=== PATIENT | female | born 1985 | race Caucasian/White ===

== ENCOUNTER → 2023-10-11 | Outpatient (REF) | payer OTHER ==
[2023-10-11 15:45] LABS: CREATININE, URINE 60.6 MG/DL; MAU/CREAT RATIO 113.8 MCG/MG (0.0-30.0)
== END ==
LOC: M LAB REF 15:03
PROVIDERS: ATTEND Nurse Practitioner Family
DX: E10.65 Type 1 diabetes mellitus with hyperglycemia (principal)

== ENCOUNTER 2024-01-15 14:31 | Inpatient (IN) | payer OTHER ==
[~2024-01-15] VITALS: Ht 180.3 cm; Wt 89.1 kg
[2024-01-15] MEDS: NS 500 ML IV ONE (15:15)
[2024-01-15] MEDS: PANTOPRAZOLE 40MG VIAL IV ONE (15:16)
[2024-01-15] MEDS: MORPHINE 4 MG/ML 1ML VIAL IV ONE ×2 (15:16→18:25)
[2024-01-15] MEDS: ONDANSETRON 4MG 2ML VIAL IV ONE ×2 (15:16→17:11)
[2024-01-15 15:25] LABS: BASO % 0.1 % (0.0-1.0); HEMATOCRIT 34.5 % (36.0-47.0); HEMOGLOBIN 12.6 g/dl (12.0-15.5); LYMPH # 0.8 10^3/uL (1.5-5.0); LYMPH % 9.2 % (24.0-44.0); MEAN CORPUSCULAR HEMOGLOBIN 32.2 pg (27.0-33.0); MEAN CORPUSCULAR HGB CONC 36.5 g/dl (32.0-36.5); MEAN CORPUSCULAR VOLUME 88.2 fl (80.0-96.0); MONO # 0.6 10^3/uL (0.0-0.8); MONO % 6.8 % (2.0-8.0); NEUTROPHILS # 6.8 10^3/uL (1.5-8.5); NEUTROPHILS % 83.4 % (36.0-66.0); PLATELET COUNT, AUTOMATED 202 10^3/uL (150-450); RED BLOOD COUNT 3.91 10^6/uL (4.00-5.40); WHITE BLOOD COUNT 8.1 10^3/uL (4.0-10.0)
[2024-01-15 15:44] LABS: LIPASE 33 U/L (12-53)
[2024-01-15 15:46] LABS: ALBUMIN 3.5 G/DL (3.2-5.2); ALKALINE PHOSPHATASE 95 U/L (35-104); ALT/SGPT 21 U/L (7.0-40); AST/SGOT 15 U/L (<34); BILIRUBIN,DIRECT 0.2 MG/DL (<0.4); BILIRUBIN,TOTAL 0.5 MG/DL (0.3-1.2); BLOOD UREA NITROGEN 18 MG/DL (9-23); CALCIUM LEVEL 8.3 MG/DL (8.5-10.1); CARBON DIOXIDE LEVEL 21 MMOL/L (20-31); CHLORIDE LEVEL 104 MMOL/L (98-107); CREATININE FOR GFR 0.91 MG/DL (0.55-1.30); GLOMERULAR FILTRATION RATE > 60.0 (>60); GLUCOSE, FASTING 258 MG/DL (60-100); POTASSIUM SERUM 4.2 MMOL/L (3.5-5.1); SODIUM LEVEL 135 MMOL/L (136-145); TOTAL PROTEIN 6.6 G/DL (5.7-8.2)
[2024-01-15 15:50] LABS: RSV AMPLIFICATION NEGATIVE (NEGATIVE)
[2024-01-15 16:23] LABS: HCG, SERUM QUALITATIVE NEGATIVE (NEGATIVE)
[2024-01-15] MEDS: GASTROGRAFIN SOLUTION 30ML PO SCH (17:07)
[2024-01-15] MEDS ORDERED: ISOVUE-370 76% 100ML VIAL As Ordered ONE (17:37)
[2024-01-15] MEDS ORDERED: DEXTROSE 50% 50ML SYRINGE IV PRN (19:05)
[2024-01-15] MEDS ORDERED: NALOXONE INJ 0.4MG/1ML VIAL IV PRN (19:05)
[2024-01-15] MEDS ORDERED: GLUCAGON INJ 1MG VIAL SC PRN (19:05)
[2024-01-15] MEDS ORDERED: ACETAMINOPHEN 325 MG TAB PO PRN (19:05)
[2024-01-15] MEDS ORDERED: GLUCOSE 4 GM CHEW PO PRN (19:05)
[2024-01-15] MEDS: HALOPERIDOL LACTATE 5MG/ML VIAL IM ONE (19:20)
[2024-01-15] MEDS ORDERED: ALBUTEROL 90 MCG/ACT 8GM HFA INHALER INH PRN (19:20)
[2024-01-15 19:35] LABS: VENOUS BASE EXCESS -8.3 (-2.0-2.0); VENOUS HCO3 17.1 MMOL/L (23.0-27.0); VENOUS O2 SATURATION 70.8 % (60.0-80.0); VENOUS PARTIAL PRESSURE CO2 35.1 mmHg (38.0-50.0); VENOUS PARTIAL PRESSURE O2 39.5 mmHg (30.0-50.0); VENOUS PH 7.306 UNITS (7.330-7.430); VENOUS STANDARD HCO3 17.3 MMOL/L; VENOUS TOTAL CO2 18.2 MMOL/L (24.0-28.0)
[2024-01-15] MEDS: LR 1,000 ML IV SCH (19:36)
[2024-01-15 19:57] LABS: INR 1.02; PARTIAL THROMBOPLASTIN TIME 30.4 SECONDS (24.8-34.2); PROTHROMBIN TIME 13.7 SECONDS (12.5-14.5)
[2024-01-15 20:04] LABS: C REACTIVE PROTEIN QUANTITATIV 2.5 MG/DL (<1.0); MAGNESIUM LEVEL 1.8 MG/DL (1.8-2.4)
[2024-01-15 20:05] LABS: HEMOGLOBIN A1c 9.4 % (4.0-6.0)
[2024-01-15 20:09] LABS: FERRITIN 115.7 NG/ML (7.3-270.7)
[2024-01-15 20:14] LABS: PROCALCITONIN 0.12 ng/ml
[2024-01-15 20:30] VITALS: BP 127/71; TEMP 99.1; O2SAT 94
[2024-01-15 20:45] LABS: AMPHETAMINES LEVEL URINE NEGATIVE (NEGATIVE); BARBITURATES URINE NEGATIVE (NEGATIVE); BENZODIAZEPINES URINE NEGATIVE (NEGATIVE); COCAINE METABOLITE URINE NEGATIVE (NEGATIVE); METHADONE URINE NEGATIVE (NEGATIVE); PHENCYCLIDINE URINE NEGATIVE (NEGATIVE)
[2024-01-15 20:46] LABS: CANNABINOIDS URINE POSITIVE (NEGATIVE); OPIATES URINE POSITIVE (NEGATIVE)
[2024-01-15] MEDS: MUPIROCIN 2% OINT 22 GM TUBE TOP SCH (21:00)
[2024-01-15] MEDS ORDERED: INSULIN LISPRO (NovoLOG) PER UNIT SC SCH (21:00)
[2024-01-15 21:46] VITALS: O2SAT 92
[2024-01-15] MEDS ORDERED: SERT50TA29 PO (21:52)
[2024-01-15] MEDS ORDERED: INSUDET SC ×2 (21:52→22:13)
[2024-01-15] MEDS ORDERED: NOVOINJ3 SC (21:52)
[2024-01-15] MEDS ORDERED: MULT-90 PO (21:55)
[2024-01-15] MEDS ORDERED: HOME MED LIST COMPLETE! XX SCH ×2 (22:00→22:15)
[2024-01-15] MEDS: REMDESIVIR 200 MG in NS 250 ML IV ONE (22:15)
[2024-01-15] MEDS: METOCLOPRAMIDE INJ 10MG/2ML VIAL IV SCH (22:16)
[2024-01-15] MEDS: INSULIN LISPRO (NovoLOG) PER UNIT SC ONE (22:16)
[2024-01-15] MEDS: LEVEMIR (INSULIN DETEMIR) 1 UNITS/0.01ML SC ONE (22:16)
[2024-01-15 23:53] VITALS: BP 103/50; TEMP 97.4; O2SAT 100
[2024-01-16] MEDS: MORPHINE 2 MG/ML 1ML VIAL IV PRN ×2 (00:15→07:22)
[2024-01-16] MEDS: INSULIN LISPRO (NovoLOG) PER UNIT SC SCH ×2 (00:15→12:00)
[2024-01-16 02:10] LABS: VENOUS BASE EXCESS -4.1 (-2.0-2.0); VENOUS HCO3 20.7 MMOL/L (23.0-27.0); VENOUS O2 SATURATION 95.4 % (60.0-80.0); VENOUS PARTIAL PRESSURE CO2 36.8 mmHg (38.0-50.0); VENOUS PARTIAL PRESSURE O2 83.7 mmHg (30.0-50.0); VENOUS PH 7.368 UNITS (7.330-7.430); VENOUS TOTAL CO2 21.8 MMOL/L (24.0-28.0)
[2024-01-16 02:49] LABS: ACETONE/KETONE 1.16 MMOL/L (0.02-0.27); BLOOD UREA NITROGEN 18 MG/DL (9-23); CALCIUM LEVEL 7.8 MG/DL (8.5-10.1); CARBON DIOXIDE LEVEL 24 MMOL/L (20-31); CHLORIDE LEVEL 106 MMOL/L (98-107); CREATININE FOR GFR 1.03 MG/DL (0.55-1.30); GLOMERULAR FILTRATION RATE > 60.0 (>60); GLUCOSE, FASTING 208 MG/DL (60-100); SODIUM LEVEL 137 MMOL/L (136-145)
[2024-01-16 04:00] VITALS: BP 112/62; TEMP 97.7; O2SAT 100
[2024-01-16 06:07] LABS: BASO % 0.2 % (0.0-1.0); EOS % 0.2 % (0.0-3.0); HEMATOCRIT 32.6 % (36.0-47.0); HEMOGLOBIN 11.3 g/dl (12.0-15.5); LYMPH # 1.3 10^3/uL (1.5-5.0); LYMPH % 24.4 % (24.0-44.0); MEAN CORPUSCULAR HGB CONC 34.7 g/dl (32.0-36.5); MEAN CORPUSCULAR VOLUME 89.6 fl (80.0-96.0); MONO # 0.6 10^3/uL (0.0-0.8); MONO % 10.8 % (2.0-8.0); NEUTROPHILS # 3.5 10^3/uL (1.5-8.5); NEUTROPHILS % 64.2 % (36.0-66.0); PLATELET COUNT, AUTOMATED 199 10^3/uL (150-450); RED BLOOD COUNT 3.64 10^6/uL (4.00-5.40); WHITE BLOOD COUNT 5.4 10^3/uL (4.0-10.0)
[2024-01-16 06:30] LABS: BLOOD UREA NITROGEN 17 MG/DL (9-23); CARBON DIOXIDE LEVEL 23 MMOL/L (20-31); CHLORIDE LEVEL 106 MMOL/L (98-107); CREATININE FOR GFR 0.92 MG/DL (0.55-1.30); GLOMERULAR FILTRATION RATE > 60.0 (>60); GLUCOSE, FASTING 95 MG/DL (60-100); MAGNESIUM LEVEL 1.9 MG/DL (1.8-2.4); POTASSIUM SERUM 3.8 MMOL/L (3.5-5.1); SODIUM LEVEL 137 MMOL/L (136-145)
[2024-01-16] MEDS ORDERED: INSULIN LISPRO (NovoLOG) PER UNIT SC SCH (07:30)
[2024-01-16 08:00] VITALS: BP 141/66; TEMP 98.1; O2SAT 94
[2024-01-16] MEDS: PANTOPRAZOLE 40MG VIAL IV SCH (08:10)
[2024-01-16] MEDS: ENOXAPARIN 40MG/0.4ML SYRINGE (J1650 PER 10MG) SC SCH (08:10)
[2024-01-16] MEDS: LEVEMIR (INSULIN DETEMIR) 1 UNITS/0.01ML SC SCH ×2 (08:12→20:45)
[2024-01-16 08:29] LABS: VENOUS HCO3 20.6 MMOL/L (23.0-27.0); VENOUS O2 SATURATION 97.6 % (60.0-80.0); VENOUS PARTIAL PRESSURE CO2 32.5 mmHg (38.0-50.0); VENOUS PARTIAL PRESSURE O2 107.7 mmHg (30.0-50.0); VENOUS TOTAL CO2 21.6 MMOL/L (24.0-28.0)
[2024-01-16 09:02] LABS: ACETONE/KETONE 2.21 MMOL/L (0.02-0.27); BLOOD UREA NITROGEN 16 MG/DL (9-23); CALCIUM LEVEL 8.1 MG/DL (8.5-10.1); CARBON DIOXIDE LEVEL 22 MMOL/L (20-31); CHLORIDE LEVEL 108 MMOL/L (98-107); CREATININE FOR GFR 0.86 MG/DL (0.55-1.30); GLOMERULAR FILTRATION RATE > 60.0 (>60); GLUCOSE, FASTING 63 MG/DL (60-100); POTASSIUM SERUM 3.4 MMOL/L (3.5-5.1); SODIUM LEVEL 139 MMOL/L (136-145)
[2024-01-16] MEDS: KCL 10MEQ/100ML SWI (KRUN) 10 MEQ in IV 1 EA IV SCH (10:17)
[2024-01-16 12:00] VITALS: BP 135/69; TEMP 98.4; O2SAT 94
[2024-01-16] MEDS: METOCLOPRAMIDE INJ 10MG/2ML VIAL IV SCH (12:27)
[2024-01-16] MEDS: KETOROLAC 30 MG/ML 1ML VIAL IV ONE (12:53)
[2024-01-16] MEDS ORDERED: LR IV SCH (14:00)
[2024-01-16] MEDS ORDERED: POTASSIUM ACETATE IV SCH (14:00)
[2024-01-16] MEDS: POTASSIUM CHLORIDE INJ 40 MEQ in LR 1,000 ML IV SCH (14:00)
[2024-01-16 14:14] LABS: VENOUS BASE EXCESS -1.9 (-2.0-2.0); VENOUS HCO3 23.6 MMOL/L (23.0-27.0); VENOUS PARTIAL PRESSURE CO2 43.5 mmHg (38.0-50.0); VENOUS PARTIAL PRESSURE O2 48.6 mmHg (30.0-50.0); VENOUS PH 7.353 UNITS (7.330-7.430); VENOUS STANDARD HCO3 22.6 MMOL/L
[2024-01-16 14:42] LABS: BLOOD UREA NITROGEN 17 MG/DL (9-23); CARBON DIOXIDE LEVEL 26 MMOL/L (20-31); CHLORIDE LEVEL 109 MMOL/L (98-107); CREATININE FOR GFR 0.92 MG/DL (0.55-1.30); GLOMERULAR FILTRATION RATE > 60.0 (>60); GLUCOSE, FASTING 135 MG/DL (60-100); POTASSIUM SERUM 3.8 MMOL/L (3.5-5.1); SODIUM LEVEL 139 MMOL/L (136-145)
[2024-01-16 16:00] VITALS: BP 126/62; TEMP 97.9; O2SAT 94
[2024-01-16] MEDS: ACETAMINOPHEN 500 MG TAB PO ONE (17:55)
[2024-01-16 20:10] VITALS: BP 126/62; TEMP 97.9; O2SAT 91
[2024-01-16] MEDS: REMDESIVIR 100 MG in NS 100 ML IV SCH (20:44)
[2024-01-16 21:00] VITALS: O2SAT 94
[2024-01-16] MEDS ORDERED: LEVEMIR (INSULIN DETEMIR) 1 UNITS/0.01ML SC SCH (21:00)
[2024-01-17] VITALS: TEMP 97.7; O2SAT 95
[2024-01-17 06:00] VITALS: BP 112/66; TEMP 97.7; O2SAT 95
[2024-01-17 06:00] LABS: BASO % 0.3 % (0.0-1.0); EOS # 0.1 10^3/uL (0.0-0.5); EOS % 1.8 % (0.0-3.0); HEMATOCRIT 30.2 % (36.0-47.0); HEMOGLOBIN 10.6 g/dl (12.0-15.5); LYMPH # 1.4 10^3/uL (1.5-5.0); LYMPH % 35.5 % (24.0-44.0); MEAN CORPUSCULAR HGB CONC 35.1 g/dl (32.0-36.5); MEAN CORPUSCULAR VOLUME 88.3 fl (80.0-96.0); MONO # 0.4 10^3/uL (0.0-0.8); MONO % 10.5 % (2.0-8.0); NEUTROPHILS % 51.6 % (36.0-66.0); PLATELET COUNT, AUTOMATED 175 10^3/uL (150-450); RED BLOOD COUNT 3.42 10^6/uL (4.00-5.40); WHITE BLOOD COUNT 3.9 10^3/uL (4.0-10.0)
[2024-01-17 06:25] LABS: BLOOD UREA NITROGEN 18 MG/DL (9-23); CARBON DIOXIDE LEVEL 24 MMOL/L (20-31); CHLORIDE LEVEL 111 MMOL/L (98-107); CREATININE FOR GFR 0.86 MG/DL (0.55-1.30); GLOMERULAR FILTRATION RATE > 60.0 (>60); GLUCOSE, FASTING 152 MG/DL (60-100); MAGNESIUM LEVEL 1.8 MG/DL (1.8-2.4); POTASSIUM SERUM 4.4 MMOL/L (3.5-5.1); SODIUM LEVEL 140 MMOL/L (136-145)
[2024-01-17 06:51] VITALS: O2SAT 94
[2024-01-17 08:00] VITALS: BP 141/81; TEMP 97.9; O2SAT 95
[2024-01-17] MEDS: SERTRALINE HCL 50 MG TAB PO SCH (08:08)
[2024-01-17] MEDS: LR 1,000 ML IV SCH (10:28)
[2024-01-17] MEDS ORDERED: REGL10TA6 PO (11:50)
[2024-01-17 12:00] VITALS: BP 136/70; TEMP 97.8; O2SAT 97
== END 2024-01-17 14:39 | disposition home or self-care (01) | DRG 48 ==
LOC: M ED 14:31 → M ED INP 19:02 → OBSVTOIN 19:02 → M MSPAV 20:25
PROVIDERS: ADMIT Student in an Organized Health Care Education/Training Program; ATTEND Internal Medicine
PROC: XW033E5 Introduction of Remdesivir Anti-infective into Peripheral Vein, Percutaneous Approach, New Technology Group 5 (ICD-10-PCS; principal; 2024-01-15)
DX: E10.43 Type 1 diabetes mellitus with diabetic autonomic (poly)neuropathy (principal); U07.1 COVID-19; S81.802A Unspecified open wound, left lower leg, initial encounter; K31.84 Gastroparesis; E87.6 Hypokalemia; F39 Unspecified mood [affective] disorder; X58.XXXA Exposure to other specified factors, initial encounter; Y92.9 Unspecified place or not applicable; Z79.899 Other long term (current) drug therapy; Z79.4 Long term (current) use of insulin